=== PATIENT | female | born 1950 | race Caucasian/White ===

== ENCOUNTER → 2017-02-24 | Outpatient (CLI) | payer MEDICARE, OTHER | LOC: MAMO 02-17 14:24 | DX: Z12.31 Encounter for screening mammogram for malignant neoplasm of breast (principal); Z98.890 Other specified postprocedural states | CPT/HCPCS: G0202 ==

== ENCOUNTER → 2021-01-22 | Outpatient (CLI) | payer MEDICARE ==
[~2021-01-22] MED LIST: CRESTOR5 MG PO; EUTHYROX25 MCG PO; EVISTA60 MG PO; PROAIR DIGIHAL90 MCG INH; TRAMADOL HCL50 MG PO; VENTOLIN HFA 66.7 GM INH; VIT D2 PO
== END ==
LOC: KOH-I 11:14
DX: F17.210 Nicotine dependence, cigarettes, uncomplicated (principal); R91.8 Other nonspecific abnormal finding of lung field
CPT/HCPCS: 71271

== ENCOUNTER → 2022-07-15 | Outpatient (CLI) | payer MEDICARE | LOC: KOH-I 11:00 | DX: M54.6 Pain in thoracic spine (principal); M43.8X4 Other specified deforming dorsopathies, thoracic region | CPT/HCPCS: 72070 ==

== ENCOUNTER → 2022-07-27 | Outpatient (CLI) | payer MEDICARE | LOC: MRI 10:21 | DX: S22.050A Wedge compression fracture of T5-T6 vertebra, initial encounter for closed fracture (principal); M54.6 Pain in thoracic spine; R07.9 Chest pain, unspecified | CPT/HCPCS: 72146 ==

== ENCOUNTER → 2022-07-30 | Outpatient (CLI) | payer MEDICARE | LOC: KOH-I 15:03 | DX: Z01.818 Encounter for other preprocedural examination (principal); J43.9 Emphysema, unspecified | CPT/HCPCS: 71046 ==